=== PATIENT | male | born 1990 | race Caucasian/White ===

== ENCOUNTER 2017-06-14 02:09 | Emergency (ER) | payer OTHER ==
[2017-06-14 03:17] VITALS: BP 128/62
== END 2017-06-14 03:17 | disposition home or self-care (01) ==
LOC: ED 02:09
DX: M54.41 Lumbago with sciatica, right side (principal)
CPT/HCPCS: J1885

== ENCOUNTER 2017-06-30 19:58 | Emergency (ER) | payer OTHER ==
[~2017-06-30] VITALS: Ht 170.2 cm; Wt 65.8 kg
[2017-06-30 23:54] VITALS: BP 124/72
== END 2017-06-30 23:54 | disposition home or self-care (01) ==
LOC: ED 19:58
DX: M54.41 Lumbago with sciatica, right side (principal)
CPT/HCPCS: J1885

== ENCOUNTER 2017-07-09 16:33 | Emergency (ER) | payer OTHER ==
[~2017-07-09] VITALS: Ht 170.2 cm; Wt 66.3 kg
[2017-07-09 20:30] VITALS: BP 100/64
== END 2017-07-09 20:30 | disposition home or self-care (01) ==
LOC: ED 16:33
DX: G89.29 Other chronic pain (principal); M54.5 Low back pain; M54.16 Radiculopathy, lumbar region; V49.9XXA Car occupant (driver) (passenger) injured in unspecified traffic accident, initial encounter; Y93.89 Activity, other specified; Y99.8 Other external cause status; Y92.89 Other specified places as the place of occurrence of the external cause
CPT/HCPCS: J3010

== ENCOUNTER 2018-08-23 21:47 | Emergency (ER) | payer SELFPAY ==
[~2018-08-23] VITALS: Ht 170.2 cm; Wt 77.6 kg
[2018-08-23 23:01] LABS: BASOPHIL % 0.4 % (0-2); PLATELET COUNT 300 x10^3mcL (130-400)
[2018-08-23 23:04] LABS: RED CELL DISTRIBUTION WIDTH 14.9 % (11.5-14.5)
[2018-08-23 23:10] LABS: AMPHETAMINE QUAL UR NONE DETECTED (See below)
[2018-08-23 23:20] LABS: CALCIUM 9.2 mg/dL (8.5-10.1); CARBON DIOXIDE 28.8 mmol/L (21-32); CHLORIDE SERUM 99 mmol/L (98-107); GFR1 > 60 mL/min; GLUCOSE SERUM 95 mg/dL (74-106); POTASSIUM SERUM 3.4 mmol/L (3.5-5.1); SODIUM SERUM 138 mmol/L (136-145)
[2018-08-23 23:24] LABS: ALBUMIN 4.6 g/dL (3.4-5.0); ALKALINE PHOSPHATASE 87 U/L (46-116); ALT/SGPT 26 U/L (16-63); AST/SGOT 24 U/L (15-37); BILIRUBIN TOTAL 0.8 mg/dL (0.20-1.00)
[2018-08-23 23:25] LABS: TOTAL PROTEIN, SERUM 9.3 g/dL (6.4-8.2)
[2018-08-24 08:29] VITALS: BP 106/88
== END 2018-08-24 09:08 | disposition home or self-care (01) ==
LOC: ED 21:47
PROVIDERS: Emergency Medicine
DX: F32.9 Major depressive disorder, single episode, unspecified (principal); S60.812A Abrasion of left wrist, initial encounter; Z98.890 Other specified postprocedural states; W26.8XXA Contact with other sharp object(s), not elsewhere classified, initial encounter; Y93.89 Activity, other specified; Y92.89 Other specified places as the place of occurrence of the external cause; Y99.8 Other external cause status
CPT/HCPCS: 36415; G0480

== ENCOUNTER 2018-11-15 21:42 | Emergency (ER) | payer SELFPAY ==
[~2018-11-15] VITALS: Ht 170.2 cm; Wt 78.0 kg
[2018-11-15 21:57] VITALS: Ht 170.2 cm; Wt 78.0 kg
[2018-11-16 00:16] VITALS: BP 118/74
== END 2018-11-16 00:10 | disposition home or self-care (01) ==
LOC: ED 21:42
DX: M94.0 Chondrocostal junction syndrome [Tietze] (principal); F17.210 Nicotine dependence, cigarettes, uncomplicated; G25.81 Restless legs syndrome; Z88.0 Allergy status to penicillin
CPT/HCPCS: 99406; J1885; Q0092

== ENCOUNTER 2019-06-05 23:05 | Emergency (ER) | payer SELFPAY ==
[~2019-06-05] VITALS: Ht 172.7 cm; Wt 73.6 kg
[2019-06-06 01:13] VITALS: BP 115/60
== END 2019-06-06 01:13 | disposition home or self-care (01) ==
LOC: ED 23:05
DX: H60.91 Unspecified otitis externa, right ear (principal); H61.21 Impacted cerumen, right ear; M54.30 Sciatica, unspecified side; Z88.0 Allergy status to penicillin

== ENCOUNTER 2020-05-29 01:39 | Emergency (ER) | payer MEDICAID ==
[~2020-05-29] VITALS: Ht 170.2 cm; Wt 69.9 kg
[2020-05-29 02:56] LABS: AMPHETAMINE QUAL UR POSITIVE (See below)
[2020-05-29 03:26] VITALS: BP 107/61
== END 2020-05-29 03:26 | disposition home or self-care (01) ==
LOC: ED 01:39
PROVIDERS: Emergency Medicine
DX: R07.89 Other chest pain (principal); T43.625A Adverse effect of amphetamines, initial encounter; Z88.6 Allergy status to analgesic agent; Y92.89 Other specified places as the place of occurrence of the external cause